=== PATIENT | male | born 1970 | race African-American/Black ===

== ENCOUNTER 2025-10-12 20:03 | Emergency (ER) | payer MEDICAID ==
[~2025-10-12] VITALS: Ht 182.9 cm; Wt 109.0 kg
[2025-10-12 20:09] VITALS: BP 124/85; PULSE 95; RESP 18; TEMP 97.8; O2SAT 97
[2025-10-12 21:35] LABS: BASOPHILS % 0.6 % (0.0-2.0); EOSINOPHILS % 4.0 % (0.0-5.0); HEMATOCRIT. 47.7 % (42.0-52.0); HEMOGLOBIN. 14.9 g/dL (14.0-18.0); LYMPHOCYTES % 20.0 % (20.0-50.0); MEAN PLATELET VOLUME 7.6 fl (7.4-10.4); MONOCYTES % 6.9 % (2.0-8.0); NEUTROPHILS % 68.5 % (40.0-76.0); PLATELET 270 x1000/uL (130-400); RED BLOOD CELL COUNT 5.36 mill/uL (4.7-6.1); RED CELL DISTRIBUTION WIDTH 13.7 % (11.6-14.6)
[2025-10-12 21:53] LABS: CREATININE 1.1 mg/dL (0.6-1.3); UREA NITROGEN BLOOD 11 mg/dL (9-23)
== END 2025-10-12 21:30 | disposition left against medical advice (07) ==
LOC: ER 20:03
DX: R55 Syncope and collapse (principal)
CPT/HCPCS: 36415; 80048; 85025; 93005; 99281